=== PATIENT | female | born 1930 | race Caucasian/White ===

== ENCOUNTER → 2017-02-27 | Outpatient (CLI) | payer OTHER | LOC: HYPER 02-06 12:27 | DX: S81.802A Unspecified open wound, left lower leg, initial encounter (principal); M15.9 Polyosteoarthritis, unspecified; G62.9 Polyneuropathy, unspecified; M70.62 Trochanteric bursitis, left hip; J44.9 Chronic obstructive pulmonary disease, unspecified; M20.10 Hallux valgus (acquired), unspecified foot; M47.812 Spondylosis without myelopathy or radiculopathy, cervical region; I12.9 Hypertensive chronic kidney disease with stage 1 through stage 4 chronic kidney disease, or unspecified chronic kidney disease; N18.9 Chronic kidney disease, unspecified; E78.5 Hyperlipidemia, unspecified; Z98.49 Cataract extraction status, unspecified eye; Z96.643 Presence of artificial hip joint, bilateral; Z91.19 Patient's noncompliance with other medical treatment and regimen; Z90.10 Acquired absence of unspecified breast and nipple; Z72.89 Other problems related to lifestyle; X58.XXXA Exposure to other specified factors, initial encounter; Y93.89 Activity, other specified; Y92.89 Other specified places as the place of occurrence of the external cause; Y99.8 Other external cause status ==

== ENCOUNTER → 2017-03-12 | Outpatient (CLI) | payer OTHER | LOC: HYPER 07:12 | DX: S81.802D Unspecified open wound, left lower leg, subsequent encounter (principal); M15.9 Polyosteoarthritis, unspecified; G62.9 Polyneuropathy, unspecified; M70.62 Trochanteric bursitis, left hip; J44.9 Chronic obstructive pulmonary disease, unspecified; Z96.643 Presence of artificial hip joint, bilateral; M20.10 Hallux valgus (acquired), unspecified foot; M47.812 Spondylosis without myelopathy or radiculopathy, cervical region; I12.9 Hypertensive chronic kidney disease with stage 1 through stage 4 chronic kidney disease, or unspecified chronic kidney disease; N18.9 Chronic kidney disease, unspecified; Z91.19 Patient's noncompliance with other medical treatment and regimen; Z90.10 Acquired absence of unspecified breast and nipple; E78.5 Hyperlipidemia, unspecified; Z72.89 Other problems related to lifestyle; X58.XXXD Exposure to other specified factors, subsequent encounter ==

== ENCOUNTER → 2017-03-27 | Outpatient (CLI) | payer OTHER | LOC: HYPER 06:49 | DX: S81.802D Unspecified open wound, left lower leg, subsequent encounter (principal); M15.9 Polyosteoarthritis, unspecified; G62.9 Polyneuropathy, unspecified; R60.0 Localized edema; M47.812 Spondylosis without myelopathy or radiculopathy, cervical region; R42 Dizziness and giddiness; Z91.19 Patient's noncompliance with other medical treatment and regimen; M19.90 Unspecified osteoarthritis, unspecified site; I12.9 Hypertensive chronic kidney disease with stage 1 through stage 4 chronic kidney disease, or unspecified chronic kidney disease; N18.9 Chronic kidney disease, unspecified; J44.9 Chronic obstructive pulmonary disease, unspecified; E78.5 Hyperlipidemia, unspecified; Z72.89 Other problems related to lifestyle; Z87.891 Personal history of nicotine dependence; X58.XXXD Exposure to other specified factors, subsequent encounter ==

== ENCOUNTER → 2017-04-10 | Outpatient (CLI) | payer OTHER | LOC: HYPER 07:11 | DX: S81.802D Unspecified open wound, left lower leg, subsequent encounter (principal); M15.9 Polyosteoarthritis, unspecified; G62.9 Polyneuropathy, unspecified; I12.9 Hypertensive chronic kidney disease with stage 1 through stage 4 chronic kidney disease, or unspecified chronic kidney disease; N18.9 Chronic kidney disease, unspecified; J44.9 Chronic obstructive pulmonary disease, unspecified; E78.5 Hyperlipidemia, unspecified; Z98.49 Cataract extraction status, unspecified eye; Z96.649 Presence of unspecified artificial hip joint; Z96.698 Presence of other orthopedic joint implants; Z72.89 Other problems related to lifestyle; X58.XXXD Exposure to other specified factors, subsequent encounter ==

== ENCOUNTER → 2017-04-24 | Outpatient (CLI) | payer OTHER | LOC: HYPER 07:21 | DX: S81.802D Unspecified open wound, left lower leg, subsequent encounter (principal); M15.9 Polyosteoarthritis, unspecified; G62.9 Polyneuropathy, unspecified; M47.812 Spondylosis without myelopathy or radiculopathy, cervical region; R42 Dizziness and giddiness; Z91.19 Patient's noncompliance with other medical treatment and regimen; N18.9 Chronic kidney disease, unspecified; M19.90 Unspecified osteoarthritis, unspecified site; J44.9 Chronic obstructive pulmonary disease, unspecified; E78.5 Hyperlipidemia, unspecified; Z87.891 Personal history of nicotine dependence; X58.XXXD Exposure to other specified factors, subsequent encounter ==